=== PATIENT | male | born 1955 | race Caucasian/White ===

== ENCOUNTER 2017-11-26 14:12 | Inpatient (IN) | payer OTHER ==
[2017-11-26 16:56] VITALS: BMI 26.6
--- NOTE | 2017-11-26 18:49 | HP ---
"CIWA Score - CIWA Score Nausea/Vomitin-Mild Nausea/No Vomiting Muscle Tremors: 4-Moderate,w/Arms Extend Anxiety: 1-Mildly Anxious Agitation: 4-Moderately Restless Paroxysmal Sweats: 4-Forehead w/Sweat Beads Orientation: 3-Disoriented Date>2 days Tacttile Disturbances: 0-None Auditory Disturbances: 0-None Visual Disturbances: 0-None Headache: 0-None Present CIWA-Ar Total Score: 17 Admission ROS S - HPI Chief Complaint: Alcohol withdrawal. Allergies/Adverse Reactions: Allergies Allergy/AdvReac Type Severity Reaction Status Date / Time No Known Allergies Allergy Verified 11/26/17 21:42 History of Present Illness: Patient w/ hx alcohol use since age 20. Stopped nicotine use 4 months ago. States longest sobriety 10 days. Denies hx prior treatment for alcohol. State s (L) eye surgery 1 year ago. Not sure what type of surgery. Currently has burning and itching in eye. Has bottles of eye drops used for glaucoma. States treated for a kidney infection 2 weeks ago. Denies other significant PMH. Search Terms: Kenzie Lr, 1955 Search Date: 11/26/2017 10:25:04 PM The Drug Utilization Report below displays all of the controlled substance prescriptions, if any, that your patient has filled in the last twelve months. The information displayed on this report is compiled from pharmacy submissions to the Department, and accurately reflects the information as submitted by the pharmacies. This report was requested by: Simran Rankin | Reference #: [id number] There are no results for the search terms that you entered. Exam Limitations: Language Barrier (Use of Language Hotline - only speaks [place]) - Ebola screening Have you traveled outside of the country in the last 21 days: No Have you had contact with anyone from an Ebola affected area: No Have you been sick,other than usual withdrawal symptoms: No Do you have a fever: No - Review of Systems Constitutional: Changes in sleep (Difficulty staying asleep) EENT: reports: Blurred Vision (Eye ssurgery 1 year ago. Difficulty ready small preint), Dental Problems (Missing teeth), Other (L) eye surgery 1 year ago.States pain and itching in (L) eye.) Respiratory: reports: No Symptoms reported Cardiac: reports: No Symptoms Reported GI: reports: No Symptoms Reported : reports: No Symptoms Reported Musculoskeletal: reports: No Symptoms Reported Integumentary: reports: No Symptoms Reported Neuro: reports: No Symptoms reported Endocrine: reports: No Symptoms Reported Hematology: reports: No Symptoms Reported Psychiatric: reports: Agitated, Anxious, Depressed, Disorientated Patient History - Patient Medical History Hx Asthma: No Hx Chronic Obstructive Pulmonary Disease (COPD): No Hx Cardiac Disorders: No Hx Hypertension: Yes (no meds ) Hx Hypercholesterolemia: No Hx Pacemaker: No HX Cerebrovascular Accident: No Hx Seizures: No Hx Diabetes: No Hx Gastrointestinal Disorders: No Hx Liver Disease: Yes (liver enlarged r/t alcohol) Hx Genitourinary Disorders: No Hx Sexually Transmitted Disorders: No Hx Renal Disease (ESRD): No Hx Human Immunodeficiency Virus (HIV): No Hx Depression: Yes (Denies thoughts of hurting self or others) Hx Suicide Attempt: No Hx Schizophrenia: No - Patient Surgical History Past Surgical History: Yes Hx Orthopedic Surgery: Yes (L leg surgery in [facility]) Anesthesia Reaction: No - PPD History Previous Implant?: No Implanted On Prior R Admission?: No PPD to be Administered?: Yes - Smoking Cessation Smoking history: Former smoker Have you smoked in the past 12 months: Yes Aproximately how many cigarettes per day: 40 If you are a former smoker, when did you quit?: 4 months ago Hx Chewing Tobacco Use: No Initiated information on smoking cessation: Yes 'Breaking Loose' booklet given: 11/26/17 - Substance & Tx. History Hx Alcohol Use: Yes Hx Substance Use: Yes Substance Use Type: Alcohol Hx Substance Use Treatment: No - Substances Abused Alcohol Route: Oral Frequency: Daily Amount used: 150ml vodka Age of first use: 20 Date of Last Use: 11/26/17 Admission Physical Exam BHS - Vital Signs Vital Signs: Vital Signs - 24 hr 11/26/17 16:35 Temperature 97.1 F L Pulse Rate 66 Respiratory 18 Rate Blood Pressure 157/94 - Physical General Appearance: Yes: Nourished, Appropriately Dressed, Mild Distress, Tremorous, Anxious HEENTM: Yes: EOMI, Hearing grossly Normal, Normocephalic, Other ((L) sclera w/ ioncreased bright erythema. Whitish discharge from (L) eye. Patient sent to [facility] for evaluation of eyes. Report given to Dr Diaz.) Respiratory: Yes: Lungs Clear, Normal Breath Sounds, No Respiratory Distress Neck: Yes: No masses,lesions,Nodules Breast: Yes: Breast Exam Deferred Cardiology: Yes: Regular Rhythm, Regular Rate, S1, S2 Abdominal: Yes: Non Tender, Soft, Increased Bowel Sounds, Protuberent ( increased abdominal adiposity) Genitourinary: Yes: Within Normal Limits Back: Yes: Normal Inspection Musculoskeletal: Yes: full range of Motion, Gait Steady Extremities: Yes: Normal Capillary Refill, Normal Range of Motion, Non-Tender, Tremors (mild) Neurological: Yes: alcohol and drug counselor II-XII NML intact, Alert, Motor Strength 5/5, Normal Mood /Affect, Normal Response Integumentary: Yes: Normal Color, Dry, Warm Lymphatic: Yes: Within Normal Limits - Diagnostic (1) Alcohol dependence with uncomplicated withdrawal Current Visit: Yes Status: Acute (2) Bacterial conjunctivitis of both eyes Current Visit: Yes Status: Acute Cleared for Admission [facility] - Detox or Rehab [facility] Level of Care: Medically Managed Detox Regimen/Protocol: Librium [facility] Breath Alcohol Content Breath Alcohol Content: 0 Urine Drug Screen - Results Drug Screen Negative: No Urine Drug Screen Results: BZO-Benzodiazepines"
[2017-11-27] MEDS ORDERED: MENTHOL/PHENOL 1 EACH UD MM PRN (01:17)
[2017-11-27] MEDS ORDERED: NICOTINE POLACRILEX 2 MG GUM BC PRN (01:17)
[2017-11-27] MEDS ORDERED: guaiFENesin/D-METHORPHAN HB 10 ML UNIT-DOSE CUPS PO PRN (01:17)
[2017-11-27] MEDS ORDERED: IBUPROFEN 400 MG TABLET (FP) PO PRN (01:17)
[2017-11-27] MEDS ORDERED: ACETAMINOPHEN 325 MG TABLET (FP) PO PRN (01:17)
[2017-11-27] MEDS ORDERED: P-EPHED 60MG/TRIPROLIDI 2.5MG TABLET PO PRN (01:17)
[2017-11-27] MEDS ORDERED: LOPERAMIDE HCL 2 MG CAPSULE PO PRN (01:17)
[2017-11-27] MEDS ORDERED: MAGNESIUM CITRATE 300 ML BOTTLE PO PRN (01:17)
[2017-11-27] MEDS ORDERED: hydrOXYzine PAMOATE 50 MG CAPSULE (FP) PO PRN (01:17)
[2017-11-27] MEDS ORDERED: MAG HYDROX/AL HYDROX/SIMETH 30 ML UNIT-DOSE CUP PO PRN (01:17)
[2017-11-27] MEDS ORDERED: MAGNESIUM HYDROX 2400MG/30ML ORAL SUSPENSION 30 ML CUP PO PRN (01:17)
[2017-11-27] MEDS ORDERED: chlordiazePOXIDE HCL 25 MG CAPSULE PO PRN (01:17)
[2017-11-27] MEDS: OFLOXACIN 0.3% OPHTHALMIC SOLUTION 5 ML BOTTLE OU SCH ×12 (01:24→23:33)
[2017-11-27] MEDS: chlordiazePOXIDE HCL 25 MG CAPSULE PO SCH ×4 (05:29→22:32)
--- NOTE | 2017-11-27 07:47 | PN ---
[facility] Progress Note Note: returned from [facility]- dx bacterial conjunctivitis p- contact isolation oflocixin gtts as ordered Medical Decision Making - Medical Decision Making 11/26/17 21:58 Pt is a 62 y/o M who presents from [facility] with b/l eye redness, L worse than R for two days -VSS, afebrile. EOMI, PERRLA -Pt with conjunctivitis to both eyes, L with green purulent drainage -No TTP of the L eye -DC back to [facility] with oflocixin drops -I discussed the physical exam findings, ancillary test results and final diagnoses with the patient. I answered all of the patient's questions. The patient was satisfied with the care received and felt comfortable with the discharge plan and treatment plan. The Patient agrees to follow up with the primary care physician/specialist within 24-72 hours. Return precautions were given. *DC/Admit/Observation/Transfer Diagnosis at time of Disposition: Bacterial conjunctivitis of both eyes - Discharge Dispostion Disposition: HOME Condition at time of disposition: Stable Decision to Admit order: No - Referrals - Patient Instructions Printed Discharge Instructions: DI for Conjunctivitis Additional Instructions: You have conjunctivitis or an eye infection Please use the Oflocixin drops every 2 hours, 1 drop in each eye. Use warm compresses to the eyes two-four times a day Wash your hands to prevent re-infection Return to [facility] Return to any new or worsening symptoms - Post Discharge Activity
[2017-11-27] MEDS ORDERED: NICOTINE 14 MG/24 HOURS TOPICAL PATCH TD SCH (10:00)
[2017-11-27] MEDS: PRENATAL VITAMINS W/ FOLIC ACID TABLET (FP) PO SCH (10:05)
[2017-11-27 10:16] LABS: HEMATOCRIT 41.7 % (35.4-49); HEMOGLOBIN 14.3 GM/dL (11.7-16.9); MCH 33.4 pg (25.7-33.7); MCHC 34.3 g/dl (32.0-35.9); MEAN CELL VOLUME 97.5 fl (80-96); MEAN PLT VOLUME 7.6 fl (7.5-11.1); PLATELET COUNT 243 K/MM3 (134-434); RBC 4.27 M/mm3 (4.00-5.60); WHITE BLOOD COUNT 4.5 K/mm3 (4.0-10.0)
[2017-11-27 10:37] LABS: CHLORIDE 109 mmol/L (98-107); POTASSIUM 3.5 mmol/L (3.5-5.1); SODIUM 141 mmol/L (136-145)
[2017-11-27 11:21] LABS: ALBUMIN 3.9 g/dl (3.4-5.0); ALK PHOS 41 U/L (45-117); ANION GAP 13 MMOL/L (8-16); BILIRUBIN,TOTAL 1.1 mg/dL (0.2-1); BLOOD UREA NITROGEN 15 mg/dL (7-18); CALCIUM 8.8 mg/dL (8.5-10.1); CO2 19 mmol/L (21-32); CREATININE 0.8 mg/dL (0.55-1.3); GLUCOSE,RANDOM 124 mg/dL (74-106); SGOT/AST 80 U/L (15-37); SGPT/ALT 90 U/L (13-61); TOT PROT 7.7 g/dl (6.4-8.2)
[2017-11-27] MEDS ORDERED: FLU VACCINE QUAD 60 MCG/0.5 ML (MDV 18-19) IM ONE (12:00)
--- NOTE | 2017-11-27 18:02 | PN ---
[facility] CIWA - CIWA Score Nausea/Vomitin-Mild Nausea/No Vomiting Muscle Tremors: 4-Moderate,w/Arms Extend Anxiety: 0-No Anxiety, at Ease Agitation: 0-Normal Activity Paroxysmal Sweats: 3 Orientation: 1-Uncertain about Date Tacttile Disturbances: 0-None Auditory Disturbances: 0-None Visual Disturbances: 0-None Headache: 0-None Present CIWA-Ar Total Score: 9 BHS Progress Note (SOAP) Subjective: Some shakes. Nausea w/o vomiting. Eye better. Objective: Alert. Gait steady. Abd S/NT/BS+. Tremors of hands. Face w/ perspiration. (L) sclera w/ less erythema and decreased whitish eye discharge. Vital Signs 11/27/17 14:14 Temperature 97.1 F L Pulse Rate 81 Respiratory 16 Rate Blood Pressure 133/77 Laboratory Tests 11/27/17 11/27/17 11/27/17 07:50 07:50 07:50 WBC 4.5 RBC 4.27 Hgb 14.3 Hct 41.7 MCV 97.5 H MCH 33.4 MCHC 34.3 RDW 14.0 Plt Count 243 MPV 7.6 Sodium 141 Potassium 3.5 Chloride 109 H Carbon Dioxide 19 L Anion Gap 13 BUN 15 Creatinine 0.8 Creat Clearance w eGFR > 60 Random Glucose 124 H Calcium 8.8 Total Bilirubin 1.1 H AST 80 H ALT 90 H Alkaline Phosphatase 41 L Total Protein 7.7 Albumin 3.9 RPR Titer Nonreactive Labs reviewed. Assessment: Withdrawal symptoms. Elevated LFT's Plan: Continue detox. Remain in private room.
[2017-11-27 18:59] LABS: URINE APPEARANCE CLOUDY; URINE BILIRUBIN NEGATIVE (<2.0 mg/dL); URINE COLOR YELLOW; URINE GLUCOSE (UA) NEGATIVE (NEGATIVE); URINE KETONE NEGATIVE (NEGATIVE); URINE LEUK ESTERASE NEGATIVE (NEGATIVE); URINE NITRITE NEGATIVE (NEGATIVE); URINE PROTEIN NEGATIVE (NEGATIVE); URINE UROBILINOGEN NEGATIVE mg/dL (0.2-1.0)
[2017-11-27] MEDS ORDERED: MELATONIN 5 MG TABLETS PO PRN (22:00)
[2017-11-27] MEDS: THIAMINE HCL 100 MG TABLET (FP) PO SCH (22:32)
[2017-11-28] MEDS: OFLOXACIN 0.3% OPHTHALMIC SOLUTION 5 ML BOTTLE OU SCH ×11 (00:32→22:41)
[2017-11-28] MEDS: chlordiazePOXIDE HCL 25 MG CAPSULE PO SCH ×4 (04:53→22:22)
--- NOTE | 2017-11-28 09:59 | PN ---
S CIWA - CIWA Score Nausea/Vomitin-No Nausea/No Vomiting Muscle Tremors: 4-Moderate,w/Arms Extend Anxiety: 3 Agitation: 3 Paroxysmal Sweats: 1-Minimal Palms Moist Orientation: 0-Oriented Tacttile Disturbances: 0-None Auditory Disturbances: 0-None Visual Disturbances: 0-None Headache: 0-None Present CIWA-Ar Total Score: 11 BHS Progress Note (SOAP) Subjective: PT REPORTS DECREASED ANXIETY, SWEATS, TREMORS. SAW PATIENT IN ROOM EATING BREAKFAST- GOOD APPETITE. Objective: 11/28/17 09:57 Vital Signs 11/28/17 11/28/17 11/28/17 03:30 06:52 09:17 Temperature 97.3 F L 96.4 F L Pulse Rate 75 79 Respiratory 18 18 18 Rate Blood Pressure 120/76 129/78 Laboratory Tests 11/27/17 11/27/17 11/27/17 07:50 07:50 07:50 WBC 4.5 RBC 4.27 Hgb 14.3 Hct 41.7 MCV 97.5 H MCH 33.4 MCHC 34.3 RDW 14.0 Plt Count 243 MPV 7.6 Sodium 141 Potassium 3.5 Chloride 109 H Carbon Dioxide 19 L Anion Gap 13 BUN 15 Creatinine 0.8 Creat Clearance w eGFR > 60 Random Glucose 124 H Calcium 8.8 Total Bilirubin 1.1 H AST 80 H ALT 90 H Alkaline Phosphatase 41 L Total Protein 7.7 Albumin 3.9 Urine Color Urine Appearance Urine pH Ur Specific [place] Urine Protein Urine Glucose (UA) Urine Ketones Urine Blood Urine Nitrite Urine Bilirubin Urine Urobilinogen Ur Leukocyte Esterase RPR Titer Nonreactive 11/27/17 17:30 WBC RBC Hgb Hct MCV MCH MCHC RDW Plt Count MPV Sodium Potassium Chloride Carbon Dioxide Anion Gap BUN Creatinine Creat Clearance w eGFR Random Glucose Calcium Total Bilirubin AST ALT Alkaline Phosphatase Total Protein Albumin Urine Color Yellow Urine Appearance Cloudy Urine pH 5.0 Ur Specific [place] 1.015 Urine Protein Negative Urine Glucose (UA) Negative Urine Ketones Negative Urine Blood Negative Urine Nitrite Negative Urine Bilirubin Negative Urine Urobilinogen Negative Ur Leukocyte Esterase Negative RPR Titer GLC-124 MG/DL Assessment: 11/28/17 09:57 WITHDRAWAL SX Plan: CONTINUE DETOX FBS X 2 DAYS R/O HYPERGLYCEMIA
[2017-11-28] MEDS: PRENATAL VITAMINS W/ FOLIC ACID TABLET (FP) PO SCH (10:12)
--- NOTE | 2017-11-28 14:51 | CONSULT ---
[facility] Psychiatric Consult - Data Date of interview: 11/28/17 Admission source: [facility] Identifying data: First admission to [facility] for this 62 y/o [place]born male brought by son (referred from [facility]) for detoxification treatment ( alcohol dependence).Admitted to [address] [place] [address].Patient is ,a father of six, domiciled,unemployed and supported by one of his sons.Mr Lr speaks pashto ONLY.Interview is conducted with the assistance of official homicide squad captain # [id number] ([employer] [employer]). Substance Abuse History: Patient confirms a long-standing history of alcohol dependence.Details in current [facility] report : Smoking history: Former smoker. Have you smoked in the past 12 months: Yes. Aproximately how many cigarettes per day: 40. If you are a former smoker, when did you quit?: 4 months ago. Hx Chewing Tobacco Use: No. Initiated information on smoking cessation: Yes. ' Breaking Loose' booklet given: 11/26/17. - Substance & Tx. History. Hx Alcohol Use: Yes. Hx Substance Use: Yes. Substance Use Type: Alcohol. Hx Substance Use Treatment: No. - Substances Abused. Alcohol. Route: Oral. Frequency: Daily. Amount used: 150ml vodka. Age of first use: 20. Date of Last Use: 11/26/17 Medical History: Hypertension,enlarged liver and current antibiotherapy for conjunctivitis. Psychiatric History: Patient denies. Physical/Sexual Abuse/Trauma History: Patient denies history of abuse.Saddened by the separation from his children left in his [place]. Additional Comment: Urine Drug Screen Results: BZO-Benzodiazepines.Noted. Mental Status Exam - Mental Status Exam Alert and Oriented to: Time, Place, Person Cognitive Function: Good Patient Appearance: Well Groomed Mood: Withdrawn, Anxious Affect: Mood Congruent, Constricted (mildly ) Patient Behavior: Fatigued, Appropriate, Cooperative Speech Pattern: Clear, Appropriate (in pashto : translated by official homicide squad captain) Voice Loudness: Normal Thought Process: Intact, Goal Oriented Thought Disorder: Not Present Hallucinations: Denies Suicidal Ideation: Denies Homicidal Ideation: Denies Insight/Judgement: Fair Sleep: Well Appetite: Good Muscle strength/Tone: Normal Gait/Station: Normal Psychiatric Findings - Problem List ([place] 1, 2,3) (1) Alcohol dependence with uncomplicated withdrawal Current Visit: Yes Status: Acute (2) Nicotine dependence Current Visit: Yes Status: Acute Qualifiers: Nicotine product type: cigarettes Substance use status: in withdrawal Qualified Code(s): F17.213 - Nicotine dependence, cigarettes, with withdrawal - Initial Treatment Plan Initial Treatment Plan: Psychoeducation and support.Utilize official homicide squad captain to communicate with the patient.Sleep hygiene.Detoxification in progress.Observation.
[2017-11-28] MEDS: THIAMINE HCL 100 MG TABLET (FP) PO SCH (22:21)
[2017-11-29] MEDS: OFLOXACIN 0.3% OPHTHALMIC SOLUTION 5 ML BOTTLE OU SCH ×6 (00:08→10:04)
[2017-11-29] MEDS: chlordiazePOXIDE 5 MG CAPSULE PO SCH ×4 (04:55→22:54)
--- NOTE | 2017-11-29 09:27 | PN ---
[facility] Progress Note (SOAP) Subjective: SLIGHT ANXIETY, FATIGUE,SWEATS. Objective: 11/29/17 09:19 Vital Signs 11/29/17 11/29/17 03:30 06:12 Temperature 97.2 F L Pulse Rate 70 Respiratory 18 18 Rate Blood Pressure 124/86 Laboratory Tests 11/27/17 11/27/17 11/27/17 07:50 07:50 07:50 WBC 4.5 RBC 4.27 Hgb 14.3 Hct 41.7 MCV 97.5 H MCH 33.4 MCHC 34.3 RDW 14.0 Plt Count 243 MPV 7.6 Sodium 141 Potassium 3.5 Chloride 109 H Carbon Dioxide 19 L Anion Gap 13 BUN 15 Creatinine 0.8 Creat Clearance w eGFR > 60 POC Glucometer Random Glucose 124 H Calcium 8.8 Total Bilirubin 1.1 H AST 80 H ALT 90 H Alkaline Phosphatase 41 L Total Protein 7.7 Albumin 3.9 Urine Color Urine Appearance Urine pH Ur Specific [place] Urine Protein Urine Glucose (UA) Urine Ketones Urine Blood Urine Nitrite Urine Bilirubin Urine Urobilinogen Ur Leukocyte Esterase RPR Titer Nonreactive 11/27/17 11/29/17 17:30 04:46 WBC RBC Hgb Hct MCV MCH MCHC RDW Plt Count MPV Sodium Potassium Chloride Carbon Dioxide Anion Gap BUN Creatinine Creat Clearance w eGFR POC Glucometer 107 Random Glucose Calcium Total Bilirubin AST ALT Alkaline Phosphatase Total Protein Albumin Urine Color Yellow Urine Appearance Cloudy Urine pH 5.0 Ur Specific [place] 1.015 Urine Protein Negative Urine Glucose (UA) Negative Urine Ketones Negative Urine Blood Negative Urine Nitrite Negative Urine Bilirubin Negative Urine Urobilinogen Negative Ur Leukocyte Esterase Negative RPR Titer Assessment: 11/29/17 09:27 WITHDRAWAL SX Plan: CONTINUE DETOX
[2017-11-29] MEDS: PRENATAL VITAMINS W/ FOLIC ACID TABLET (FP) PO SCH (10:05)
[2017-11-29] MEDS: THIAMINE HCL 100 MG TABLET (FP) PO SCH (22:53)
[2017-11-30] MEDS: OFLOXACIN 0.3% OPHTHALMIC SOLUTION 5 ML BOTTLE OU SCH ×5 (01:42→08:04)
[2017-11-30] MEDS ORDERED: chlordiazePOXIDE HCL 10 MG CAPSULE PO SCH (05:00)
[2017-11-30 06:19] VITALS: BP 125/74; PULSE 73; TEMP 96.7
--- NOTE | 2017-11-30 15:16 | PN ---
[facility] Progress Note (SOAP) Subjective: DETOX COMPLETED. ALERT O X 3. NAD. PT HAS PCP AT [address] [place] [address]. Objective: 11/30/17 15:16 Vital Signs - 24 hr 11/29/17 11/29/17 11/30/17 17:16 22:00 00:30 Temperature 97.0 F L 97.0 F L Pulse Rate 88 90 Respiratory 16 16 18 Rate Blood Pressure 149/81 120/75 11/30/17 11/30/17 03:30 06:18 Temperature 96.7 F L Pulse Rate 73 Respiratory 18 16 Rate Blood Pressure 125/74 Laboratory Tests 11/27/17 11/27/17 11/27/17 07:50 07:50 07:50 WBC 4.5 RBC 4.27 Hgb 14.3 Hct 41.7 MCV 97.5 H MCH 33.4 MCHC 34.3 RDW 14.0 Plt Count 243 MPV 7.6 Sodium 141 Potassium 3.5 Chloride 109 H Carbon Dioxide 19 L Anion Gap 13 BUN 15 Creatinine 0.8 Creat Clearance w eGFR > 60 POC Glucometer Random Glucose 124 H Calcium 8.8 Total Bilirubin 1.1 H AST 80 H ALT 90 H Alkaline Phosphatase 41 L Total Protein 7.7 Albumin 3.9 Urine Color Urine Appearance Urine pH Ur Specific [place] Urine Protein Urine Glucose (UA) Urine Ketones Urine Blood Urine Nitrite Urine Bilirubin Urine Urobilinogen Ur Leukocyte Esterase RPR Titer Nonreactive 11/27/17 11/29/17 11/29/17 17:30 04:46 17:16 WBC RBC Hgb Hct MCV MCH MCHC RDW Plt Count MPV Sodium Potassium Chloride Carbon Dioxide Anion Gap BUN Creatinine Creat Clearance w eGFR POC Glucometer 107 120 Random Glucose Calcium Total Bilirubin AST ALT Alkaline Phosphatase Total Protein Albumin Urine Color Yellow Urine Appearance Cloudy Urine pH 5.0 Ur Specific [place] 1.015 Urine Protein Negative Urine Glucose (UA) Negative Urine Ketones Negative Urine Blood Negative Urine Nitrite Negative Urine Bilirubin Negative Urine Urobilinogen Negative Ur Leukocyte Esterase Negative RPR Titer 11/30/17 05:47 WBC RBC Hgb Hct MCV MCH MCHC RDW Plt Count MPV Sodium Potassium Chloride Carbon Dioxide Anion Gap BUN Creatinine Creat Clearance w eGFR POC Glucometer 132 Random Glucose Calcium Total Bilirubin AST ALT Alkaline Phosphatase Total Protein Albumin Urine Color Urine Appearance Urine pH Ur Specific [place] Urine Protein Urine Glucose (UA) Urine Ketones Urine Blood Urine Nitrite Urine Bilirubin Urine Urobilinogen Ur Leukocyte Esterase RPR Titer Assessment: 11/30/17 15:16 MEDICALLY STABLE Plan: D/C PT TODAY
--- NOTE | 2017-11-30 15:18 | DS ---
[facility] Detox Discharge Summary Admission Date: 11/27/17 Discharge Date: 11/30/17 - History Present History: Alcohol Dependence Additional Comments: DETOX COMPLETED. FOLLOW UP WITH PMD AT [facility] AT [address] [place] [address] FOR MEDICAL MANAGEMENT. - Physical Exam Results Vital Signs: Vital Signs Temperature 96.7 F L 11/30/17 06:18 Pulse Rate 73 11/30/17 06:18 Respiratory Rate 16 11/30/17 06:18 Blood Pressure 125/74 11/30/17 06:18 O2 Sat by Pulse Oximetry (%) Pertinent Admission Physical Exam Findings: WITHDRAWAL SX Laboratory Tests 11/27/17 11/27/17 11/27/17 07:50 07:50 07:50 WBC 4.5 RBC 4.27 Hgb 14.3 Hct 41.7 MCV 97.5 H MCH 33.4 MCHC 34.3 RDW 14.0 Plt Count 243 MPV 7.6 Sodium 141 Potassium 3.5 Chloride 109 H Carbon Dioxide 19 L Anion Gap 13 BUN 15 Creatinine 0.8 Creat Clearance w eGFR > 60 POC Glucometer Random Glucose 124 H Calcium 8.8 Total Bilirubin 1.1 H AST 80 H ALT 90 H Alkaline Phosphatase 41 L Total Protein 7.7 Albumin 3.9 Urine Color Urine Appearance Urine pH Ur Specific [place] Urine Protein Urine Glucose (UA) Urine Ketones Urine Blood Urine Nitrite Urine Bilirubin Urine Urobilinogen Ur Leukocyte Esterase RPR Titer Nonreactive 11/27/17 11/29/17 11/29/17 17:30 04:46 17:16 WBC RBC Hgb Hct MCV MCH MCHC RDW Plt Count MPV Sodium Potassium Chloride Carbon Dioxide Anion Gap BUN Creatinine Creat Clearance w eGFR POC Glucometer 107 120 Random Glucose Calcium Total Bilirubin AST ALT Alkaline Phosphatase Total Protein Albumin Urine Color Yellow Urine Appearance Cloudy Urine pH 5.0 Ur Specific [place] 1.015 Urine Protein Negative Urine Glucose (UA) Negative Urine Ketones Negative Urine Blood Negative Urine Nitrite Negative Urine Bilirubin Negative Urine Urobilinogen Negative Ur Leukocyte Esterase Negative RPR Titer 11/30/17 05:47 WBC RBC Hgb Hct MCV MCH MCHC RDW Plt Count MPV Sodium Potassium Chloride Carbon Dioxide Anion Gap BUN Creatinine Creat Clearance w eGFR POC Glucometer 132 Random Glucose Calcium Total Bilirubin AST ALT Alkaline Phosphatase Total Protein Albumin Urine Color Urine Appearance Urine pH Ur Specific [place] Urine Protein Urine Glucose (UA) Urine Ketones Urine Blood Urine Nitrite Urine Bilirubin Urine Urobilinogen Ur Leukocyte Esterase RPR Titer - Treatment Hospital Course: Detox Protocol Followed, Detoxed Safely, Responded well, Discharged Condition Good - Medication Discharge Medications: Ambulatory Orders Ofloxacin 0.3% Ophth Soln [Ocuflox -] 1 drop OP Q2H #100 drops 11/26/17 - Diagnosis (1) Alcohol dependence with uncomplicated withdrawal Status: Acute (2) Bacterial conjunctivitis of both eyes Status: Acute (3) Nicotine dependence Status: Acute Qualifiers: Nicotine product type: cigarettes Substance use status: in withdrawal Qualified Code(s): F17.213 - Nicotine dependence, cigarettes, with withdrawal - AMA Did Patient Leave Against Medical Advice: No
== END 2017-11-30 10:35 | disposition home or self-care (01) | DRG 775 ==
LOC: YASAS 14:12 → Y3N 11-27
PROC: HZ2ZZZZ Detoxification Services for Substance Abuse Treatment (ICD-10-PCS; principal; 2017-11-27)
DX: F10.230 Alcohol dependence with withdrawal, uncomplicated (principal); F17.213 Nicotine dependence, cigarettes, with withdrawal; F32.9 Major depressive disorder, single episode, unspecified; I10 Essential (primary) hypertension; H10.33 Unspecified acute conjunctivitis, bilateral; B96.89 Other specified bacterial agents as the cause of diseases classified elsewhere; R74.8 Abnormal levels of other serum enzymes; R16.0 Hepatomegaly, not elsewhere classified
CPT/HCPCS: 36415; 80053; 81003; 82962; 85027; 86593; 90688; G0008

== ENCOUNTER 2017-11-26 20:41 | Emergency (ER) | payer OTHER ==
[2017-11-26 21:46] VITALS: BP 146/86; PULSE 70; TEMP 97.8; BMI 26.6
--- NOTE | 2017-11-26 22:01 | PDOC ---
History of Present Illness - General Chief Complaint: Eye Problem Stated Complaint: EYE PROBLEM Time Seen by Provider: 11/26/17 21:12 History Source: Patient Exam Limitations: Language Barrier (Pt speaks romansh. Cryacom used) - History of Present Illness Initial Comments: 11/26/17 21:56 Pt is a 62 y/o M with PMH of alchohol abuse, HTN, R close angle glaucoma s/p surgical procedure 16 mo ago, who presents to the ED from [facility] for two days of b/l eye redness with the L worse than the R. Pt state he has had increased tears and green discharge from the L eye. He states that he does not have pain in his left eye and reports no visual changes. Denies fever, chills, ear ache, sore throat, spots, floaters, flashing lights, visual changes. Past History - Travel Traveled outside of the country in the last 30 days: No Close contact w/someone who was outside of country & ill: No - Past Medical History Allergies/Adverse Reactions: Allergies Allergy/AdvReac Type Severity Reaction Status Date / Time No Known Allergies Allergy Verified 11/26/17 21:42 Home Medications: Ambulatory Orders Ofloxacin 0.3% Ophth Soln [Ocuflox -] 1 drop OP Q2H #100 drops 11/26/17 Asthma: Yes Cardiac Disorders: No CVA: No COPD: No Diabetes: No GI Disorders: No Disorders: No HTN: Yes (no meds ) Hypercholesterolemia: No Kidney Stones: No Liver Disease: Yes (liver enlarged r/t alcohol) Seizures: No - Surgical History Abdominal Surgery: Yes (Hernia) Orthopedic Surgery: Yes (L leg surgery in [facility]) - Reproductive History Testicular Surgery: No - Suicide/Smoking/Psychosocial Hx Smoking History: Former smoker Have you smoked in the past 12 months: Yes Number of Cigarettes Smoked Daily: 0 If you are a former smoker, when did you quit?: Jan Information on smoking cessation initiated: No 'Breaking Loose' booklet given: 11/26/17 Hx Alcohol Use: Yes (1 or 2 shots of Raki daily) Drug/Substance Use Hx: No Substance Use Type: Alcohol Hx Substance Use Treatment: No Review of Systems - Review of Systems Able to Perform ROS?: Yes Comments:: 11/26/17 21:54 CONSTITUTIONAL: Absent: fever, chills, diaphoresis, generalized weakness, malaise, loss of appetite HEENT: Present: redness to L eye Absent: rhinorrhea, nasal congestion, throat pain, throat swelling, difficulty swallowing, mouth swelling, ear pain, eye pain, visual Changes CARDIOVASCULAR: Absent: chest pain, loss of consciousness, palpitations, irregular heart rate, peripheral edema RESPIRATORY: Absent: cough, shortness of breath, dyspnea with exertion, orthopnea, wheezing, stridor, hemoptysis GASTROINTESTINAL: Absent: abdominal pain, abdominal distension, nausea, vomiting, diarrhea, constipation, melena, hematochezia GENITOURINARY: Absent: dysuria, frequency, urgency, hesitancy, hematuria, flank pain, genital pain MUSCULOSKELETAL: Absent: myalgia, arthralgia, joint swelling SKIN: Absent: rash, itching, pallor HEMATOLOGIC/IMMUNOLOGIC: Absent: easy bleeding, easy bruising, lymphadenopathy, frequent infections ENDOCRINE: Absent: unexplained weight gain, unexplained weight loss, heat intolerance, cold intolerance NEUROLOGIC: Absent: headache, focal weakness or paresthesias, dizziness, unsteady gait, seizure, mental status changes, bladder or bowel incontinence PSYCHIATRIC: Absent: anxiety, depression, suicidal or homicidal ideation, hallucinations. Is the patient limited Wolof proficient: No *Physical Exam - Vital Signs Last Vital Signs Temp Pulse Resp BP Pulse Ox 97.8 F 70 18 146/86 98 11/26/17 21:43 11/26/17 21:43 11/26/17 21:43 11/26/17 21:43 11/26/17 21:43 - Physical Exam Comments: 11/26/17 21:54 GENERAL: Well developed, well nourished. Awake and alert. No acute distress. HEENT: Normocephalic, atraumatic. PERRLA, EOMI. No conjunctival pallor. Sclera are non- icteric. L scleara grossly red with green discharge noted from the medial aspect of the L eye. R sclera with mild redness. Moist mucous membranes. Oropharynx is clear. NECK: Supple. Full ROM. No JVD. Carotid pulses 2+ and symmetric, without bruits. No thyromegaly. No lymphadenopathy. CARDIOVASCULAR: Regular rate and rhythm. No murmurs, rubs, or gallops. Distal pulses are 2+ and symmetric. PULMONARY: No evidence of respiratory distress. Lungs clear to auscultation bilaterally. No wheezing, rales or rhonchi. ABDOMINAL: Soft. Non-tender. Non-distended. No rebound or guarding. No organomegaly. Normoactive bowel sounds. MUSCULOSKELETAL Normal range of motion at all joints. No bony deformities or tenderness. No CVA tenderness. EXTREMITIES: No cyanosis. No clubbing. No edema. No calf tenderness. SKIN: Warm and dry. Normal capillary refill. No rashes. No jaundice. NEUROLOGICAL: Alert, awake, appropriate. Cranial nerves 2-12 intact. No deficits to light touch and temperature in face, upper extremities and lower extremities. No motor deficits in the in face, upper extremities and lower extremities. Normoreflexic in the upper and lower extremities. Normal speech. Toes are down- going bilaterally. Gait is normal without ataxia. PSYCHIATRIC: Cooperative. Good eye contact. Appropriate mood and affect. Medical Decision Making - Medical Decision Making 11/26/17 21:58 Pt is a 62 y/o M who presents from [facility] with b/l eye redness, L worse than R for two days -VSS, afebrile. EOMI, PERRLA -Pt with conjunctivitis to both eyes, L with green purulent drainage -No TTP of the L eye -DC back to [facility] with oflocixin drops -I discussed the physical exam findings, ancillary test results and final diagnoses with the patient. I answered all of the patient's questions. The patient was satisfied with the care received and felt comfortable with the discharge plan and treatment plan. The Patient agrees to follow up with the primary care physician/specialist within 24-72 hours. Return precautions were given. *DC/Admit/Observation/Transfer Diagnosis at time of Disposition: Bacterial conjunctivitis of both eyes - Discharge Dispostion Disposition: HOME Condition at time of disposition: Stable Decision to Admit order: No - Referrals - Patient Instructions Printed Discharge Instructions: DI for Conjunctivitis Additional Instructions: You have conjunctivitis or an eye infection Please use the Oflocixin drops every 2 hours, 1 drop in each eye. Use warm compresses to the eyes two-four times a day Wash your hands to prevent re-infection Return to [facility] Return to any new or worsening symptoms - Post Discharge Activity
[2017-11-26] MEDS ORDERED: OFLOXACIN 0.3% OPHTHALMIC SOLUTION 5 ML BOTTLE OU ONE (22:06)
== END 2017-11-26 22:38 | disposition home or self-care (01) ==
LOC: JER 20:41
DX: H10.9 Unspecified conjunctivitis (principal); Z87.891 Personal history of nicotine dependence; I10 Essential (primary) hypertension; J45.909 Unspecified asthma, uncomplicated
CPT/HCPCS: 99281-25